=== PATIENT | female | born 1995 | race Caucasian/White ===

== ENCOUNTER 2016-08-31 15:01 | Emergency (ER) | payer OTHER ==
[~2016-08-31] VITALS: Ht 152.4 cm; Wt 68.2 kg
[2016-08-31 15:04] VITALS: TEMP 99.4
[2016-08-31] MEDS ORDERED: NEXIUM 40MG40 MG PO (15:07)
[2016-08-31] MEDS ORDERED: ZOFRAN ODT4 MG PO (15:08)
[2016-08-31] MEDS ORDERED: ZOLOFT 50MG50 MG PO (15:08)
[2016-08-31] MEDS ORDERED: ULTRAM 50MG TAB50 MG PO (16:25)
[2016-08-31 17:10] LABS: CALCIUM 9.5 mg/dL (8.4-10.2); CREATININE, serum 0.6 mg/dL (0.52-1.25); POTASSIUM 3.8 mmol/L (3.4-5.0)
[2016-08-31 17:56] VITALS: BP 110/70; PULSE 86
== END 2016-08-31 17:57 | disposition home or self-care (01) ==
LOC: COL.ER 15:01
PROVIDERS: Emergency Medicine
DX: E86.9 Volume depletion, unspecified (principal); R19.7 Diarrhea, unspecified; R10.13 Epigastric pain
CPT/HCPCS: J1170; J1885; J7030

== ENCOUNTER 2016-11-21 10:30 | Emergency (ER) | payer OTHER ==
[~2016-11-21] VITALS: Ht 152.4 cm; Wt 70.5 kg
[~2016-11-21 10:30] MED LIST: NEXIUM 40MG40 MG PO; ULTRAM 50MG TAB50 MG PO; ZOFRAN ODT4 MG PO; ZOLOFT 50MG50 MG PO
[2016-11-21 10:38] VITALS: BP 125/83; PULSE 105; TEMP 98.6
[2016-11-21] MEDS ORDERED: NEXPLANON68 MG ID (10:59)
[2016-11-21] MEDS ORDERED: ANUSOL-HC SUPPO25 MG RC (11:09)
== END 2016-11-21 11:20 | disposition home or self-care (01) ==
LOC: COL.ER 10:30
DX: K62.5 Hemorrhage of anus and rectum (principal)

== ENCOUNTER 2017-02-01 19:27 | Emergency (ER) | payer OTHER ==
[~2017-02-01] VITALS: Ht 152.4 cm; Wt 70.5 kg
[~2017-02-01 19:27] MED LIST changes: +ANUSOL-HC SUPPO25 MG RC; +NEXPLANON68 MG ID
[2017-02-01 19:29] VITALS: BP 107/79; PULSE 98; TEMP 98.3
[2017-02-01] MEDS ORDERED: XANAX 0.5MG0.5 MG PO (19:32)
[2017-02-01] MEDS ORDERED: PROAIR HFA0.09 MG/AC IH (19:32)
[2017-02-01] MEDS ORDERED: PREDNISONE20 MG PO (20:17)
[2017-02-01] MEDS ORDERED: AMOXICILLIN 8751 TAB PO (20:17)
== END 2017-02-01 20:30 | disposition home or self-care (01) ==
LOC: COL.ER 19:27
DX: J32.1 Chronic frontal sinusitis (principal); J45.909 Unspecified asthma, uncomplicated; F41.9 Anxiety disorder, unspecified

== ENCOUNTER 2018-10-07 02:19 | Emergency (ER) | payer OTHER ==
[~2018-10-07] VITALS: Ht 180.3 cm; Wt 59.1 kg
[~2018-10-07 02:19] MED LIST changes: +AMOXICILLIN 8751 TAB PO; +PREDNISONE20 MG PO; +PROAIR HFA0.09 MG/AC IH; +XANAX 0.5MG0.5 MG PO
[2018-10-07 04:00] VITALS: BP 95/56
[2018-10-07 04:15] VITALS: PULSE 108
== END 2018-10-07 04:36 | disposition home or self-care (01) ==
LOC: COL.ER 02:19
DX: F10.129 Alcohol abuse with intoxication, unspecified (principal); Y90.8 Blood alcohol level of 240 mg/100 ml or more
CPT/HCPCS: J2405

== ENCOUNTER 2019-05-07 10:13 | Emergency (ER) | payer OTHER ==
[~2019-05-07] VITALS: Ht 152.4 cm; Wt 73.2 kg
[2019-05-07 10:23] VITALS: TEMP 98
[2019-05-07] MEDS ORDERED: NEXPLANON68 MG ID (10:41)
[2019-05-07 11:03] LABS: TRICYCLIC ANTIDEPRESS URINE NEGATIVE
[2019-05-07 11:21] LABS: BASO % 0.3 % (0.0-2.0); EOS # 0.1 (0.0-0.7); EOS % 1.7 % (0-4.0); GRAN # 3.5 (1.4-6.5); GRAN % 60.4 % (42.2-75.2); HEMATOCRIT 39.9 % (37.0-47.0); HEMOGLOBIN 13.8 g/dl (12.5-16.0); LYMPH # 1.7 (1.2-3.4); LYMPH % 30.1 % (20.0-51.0); MEAN CELL VOLUME 86 fl (80.0-100.0); MEAN CORPUSCULAR HEMOGLOBIN 30 pg (27.0-31.0); MEAN CORPUSCULAR HGB CONC 35 g/dl (33.0-37.0); MONO # 0.4 (0.1-0.6); MONO % 7.3 % (1.7-9.3); PLATELET COUNT 234 K/mm3 (130-400); RED BLOOD COUNT 4.64 M/mm3 (4.10-5.30); REDCELL DISTRIBUTION WIDTH-CV 12.5 % (11.5-14.5)
[2019-05-07 11:37] LABS: ALANINE AMINOTRANSFERASE 19 U/L (9-52); ALBUMIN 4.9 gm/dL (3.5-5.0); ALKALINE PHOSPHATASE 75 U/L (50-136); ANION GAP 12 mmol/L (7-16); AST,SGOT 39 U/L (15-37); BILIRUBIN,TOTAL 0.8 mg/dL (0.0-1.0); BLOOD UREA NITROGEN 15 mg/dL (7-17); CALCIUM 9.5 mg/dL (8.4-10.2); CARBON DIOXIDE 21 mmol/L (22-30); CHLORIDE 107 mmol/L (98-107); GLUCOSE 97 mg/dL (74-106); POTASSIUM 3.6 mmol/L (3.4-5.0); SODIUM 140 mmol/L (137-145); TOTAL PROTEIN 8.1 gm/dL (6.4-8.2)
[2019-05-07 11:50] LABS: ACETAMINOPHEN < 10 ug/mL (10-30); ALCOHOL(ethanol),MEDICAL < 10 mg/dL; SALICYLATE < 1.0 mg/dL
[2019-05-07] MEDS ORDERED: VALIUM 5MG T5 MG/TAB PO (13:27)
[2019-05-07 14:21] VITALS: BP 120/65; PULSE 97
== END 2019-05-07 14:26 | disposition home or self-care (01) ==
LOC: COL.ER 10:13
PROVIDERS: Emergency Medicine
DX: F32.9 Major depressive disorder, single episode, unspecified (principal); R45.851 Suicidal ideations; F41.9 Anxiety disorder, unspecified